=== PATIENT | female | born 1970 | race Caucasian/White ===

== ENCOUNTER → 2016-09-16 | Outpatient (CLI) | payer OTHER ==
[2016-03-08 10:01] VITALS: BP 115/76
[~2016-09-16] MED LIST: CETI10TA22 PO; HYDR-2666 PO; HYDR-965 PO; L.AC1CAP6 PO; NORE-69 PO; RIZA10TA PO; TRAZ50TA15 PO
[2016-09-16 14:28] LABS: BASO % 0 % (0-3); EOS % 0 % (0-3); HEMOGLOBIN 14.9 g/dL (12.0-15.5); LYMPH # 1.6 x10^3/uL (1.0-4.8); LYMPH % 17 % (24-48); MEAN CORPUSCULAR HEMOGLOBIN 32 pg (25-35); MEAN CORPUSCULAR HGB CONC 33 g/dL (31-37); MEAN CORPUSCULAR VOLUME 96 fL (79-100); MONO % 2 % (0-9); NEUT % 81 % (31-73); PLATELET COUNT 264 x10^3/uL (140-400); RED BLOOD COUNT 4.67 x10^6/uL (3.50-5.40); WHITE BLOOD COUNT 9.6 x10^3/uL (4.0-11.0)
[2016-09-16 15:46] LABS: ALBUMIN 3.7 g/dL (3.4-5.0); CALCIUM 8.8 mg/dL (8.5-10.1); CREATININE 0.8 mg/dL (0.6-1.0); FREE T4 1.02 ng/dL (0.76-1.46); GFR 77.9; POTASSIUM 3.6 mmol/L (3.5-5.1); TOTAL BILIRUBIN 0.3 mg/dL (0.2-1.0); TOTAL PROTEIN 7.3 g/dL (6.4-8.2)
[2016-09-17 01:14] LABS: C4 COMPLEMENT 26 mg/dL (14-44); RHEUMATOID FACTOR <10.0 IU/mL (0.0-13.9)
[2016-09-17 03:13] LABS: VITAMIN D25(OH)TOTAL 38.8 ng/mL (30.0-100.0)
[2016-09-17 07:30] LABS: IMMUNOGLUBULIN E 4 IU/mL (0-100)
[2016-09-17 21:10] LABS: CYCLIC CITRULLIN PEP AB 6 units (0-19)
== END | disposition home or self-care (01) ==
LOC: LAB 13:46
PROVIDERS: ATTEND Allergy & Immunology
DX: L50.0 Allergic urticaria (principal); L50.8 Other urticaria
CPT/HCPCS: 80053; 82306; 82784; 84165; 84439; 84443; 85027; 86160; 86200; 86376; 86431